=== PATIENT | female | born 1980 | race Caucasian/White ===

== ENCOUNTER 2019-02-16 20:36 | Inpatient (IN) ==
[~2019-02-16] VITALS: Ht 157.5 cm; Wt 61.4 kg
[2019-02-16 21:15] VITALS: BP 117/77
[2019-02-16 22:03] LABS: HEMATOCRIT 31.8 % (36.0-47.0); HEMOGLOBIN 10.9 g/dl (12.0-15.5); MEAN CORPUSCULAR HEMOGLOBIN 30.2 pg (27.0-33.0); MEAN CORPUSCULAR HGB CONC 34.3 g/dl (32.0-36.5); MEAN CORPUSCULAR VOLUME 88.1 fl (80.0-96.0); PLATELET COUNT, AUTOMATED 229 10^3/uL (150-450); RED BLOOD COUNT 3.61 10^6/uL (4.00-5.40); WHITE BLOOD COUNT 8.8 10^3/uL (4.0-10.0)
[2019-02-16 22:16] VITALS: BP 110/67
[2019-02-16] MEDS ORDERED: OXYTOCIN 30 UNITS IN 0.9% NaCl 500ML IV BAG (J2590) As Ordered ONE (22:42)
[2019-02-16 23:35] VITALS: BP 132/81
--- NOTE | 2019-02-16 23:39 | HPE ---
DATE OF ADMISSION: 02/16/2019 HISTORY OF THE PRESENT ILLNESS: Patient is a 38-year-old female who is a 11, para 8-1-0-8 with an estimated due date (DELIA) of 02/04/2019, based off of her last menstrual period (LMP) of 04/29/2018. Patient is 41 weeks and 5 days. She has not had any care. She presents to labor and delivery tonight with complaints of contractions. She reports active movement. She denies leaking of fluid or vaginal bleeding. Patient and are Yaz[place]. HISTORY: Delivery #1: 07/2006 - male fetus, weighing 13 ounces, a still after patient fell down the stairs. Baby #2 born 08/2007 - a female, weighing 6 pounds 6 ounces. Baby #3 born 09/2008 - a male, weighing 7 pounds 5 ounces. Baby #4 born 03/2010 - a male, weighing 5 pounds 7 ounces. Baby #5 born 07/2011 - female, weighing 6 pounds 1 ounce. Baby #6 born 10/2012 - a female, weighing 6 pounds 1 ounce. Baby #7 born 05/2014 - a male, weighing 6 pounds 10 ounces. Baby #8 born 05/2016 - a female, weighing 7 pounds 16 ounces. Baby #9 born 09/2017 - a male, weighing 6 pounds. Patient reports no complications with deliveries during or after. PAST MEDICAL HISTORY: None. SURGICAL HISTORY: None. FAMILY HISTORY: Noncontributory. SOCIAL HISTORY: Patient is . She has no history of alcohol or drug abuse. She denies any sexually transmitted infections. She denies being a smoker. ALLERGIES: No known allergies. MEDICATIONS: Denies taking any medications. OBJECTIVE: heart rate is 135 with moderate variability, positive accelerations and no decelerations. Contractions are regular, every 2-6 minutes. Vital Signs: Blood pressure is 117/77, her heart rate is 70, respirations are 18, temperature is 98.0. Vaginal Exam: Patient is 6 cm, 80% effaced, 0 station. LABS: Unknown GBS. Unknown blood type. Unknown gonorrhea, chlamydia. No labs were done. ASSESSMENT: Intrauterine and 41 weeks and 5 days gestation, active labor, category 1 heart rate tracing, GBS unknown. PLAN: Admit to labor and delivery, out of bed as tolerated, diet is regular, GBS unknown, and patient refusing intravenous (IV) antibiotics. IV and labs per unit protocol. Patient also declines hepatitis B, vitamin K, and erythromycin for baby. All implications of each medication reviewed with parents, and they still decline. Patient and also decline blood products. Extensive education done on reasons for blood products and the need for life saving measures, and patient and still decline. Anticipate cervical change and spontaneous vaginal delivery.
[2019-02-16 23:50] VITALS: BP 137/87
[2019-02-17 00:05] VITALS: BP 134/96
[2019-02-17 00:20] VITALS: BP 127/84
--- NOTE | 2019-02-17 00:31 | DNPDOC ---
[facility] Delivery Note Delivery Note DATE OF DELIVERY: 02/16/19 at 2312 PREDELIVERY DIAGNOSIS: 41-5/7 weeks' gestation and labor. POST DELIVERY DIAGNOSIS: Delivered. PROCEDURE: Spontaneous vaginal delivery. TEMPORARY OFFICE ASSISTANT: Margot Benavidez CNM, MELANIA ANESTHESIA: none. ESTIMATED BLOOD LOSS: 100 mL. FINDINGS: 6 pounds 11 ounces; 3030 grams; female , Score 8/9, no care. DELIVERY SUMMARY: Patient is a 38-year-old female who is now a who presents to L&D in active labor. She progressed to fully dilated at 2309 and pushed to a living female in the JEAN PAUL position to ROT at 2312. The shoulder delivered with ease and the corpus immediately followed. The baby was placed on the maternal abdomen active and crying. The cord was clamped x2 after 2 minutes and cut by the FOB. A 3-vessel cord was noted. The placenta delivered spontaneously and intact at 2320. Uterine hemostasis was achieved via rapid infusion of IV Pitocin and fundal massage. The perineum and vagina were inspected and found to be intact. Patient has large, inflamed varicosities on her right labia. Mom plans to breastfeed her . They have refused Vitamin K and erythromycin. Both mom and baby are in stable condition. MARGOT BENAVIDEZ CNM Feb 17, 2019 00:31
[2019-02-17 00:35] VITALS: BP 107/62
[2019-02-17 00:50] VITALS: BP 108/64
[2019-02-17 02:40] VITALS: BP 101/55
[2019-02-17] MEDS ORDERED: PRENTAB9 PO (05:08)
[2019-02-17 06:00] VITALS: BP 122/63
[2019-02-17] MEDS ORDERED: OXYTOCIN DRIP 30 UNITS in APPROPRIATE DILUENT 1 EA IV SCH (06:56)
[2019-02-17] MEDS ORDERED: DOCUSATE SODIUM 100 MG CAP PO PRN (07:00)
[2019-02-17] MEDS ORDERED: ACETAMINOPHEN 500 MG TAB PO PRN (07:00)
[2019-02-17] MEDS ORDERED: DIBUCAINE 1% OINTMENT 30GM TOP PRN (07:00)
[2019-02-17] MEDS ORDERED: METHYLERGONOVINE MALEATE 0.2 MG TAB PO PRN (07:00)
[2019-02-17] MEDS ORDERED: IBUPROFEN 800 MG TAB PO PRN (07:00)
[2019-02-17] MEDS ORDERED: RHOGAM 300 MCG (1500 IU) INJ (J2790) IM SCH (07:00)
[2019-02-17] MEDS ORDERED: MEASLES,MUMPS,RUBELLA VACCINE INJ (MMR-II) (90707) SC SCH (07:00)
[2019-02-17] MEDS ORDERED: PRENATAL VITAMINS CHEWABLE TABLET PO SCH (09:00)
[2019-02-17 10:42] LABS: RUBELLA IgG QUALITATIVE IMMUNE (IMMUNE)
== END 2019-02-17 18:50 | disposition home or self-care (01) | DRG 807 ==
LOC: M LDO 20:36 → M LDI 21:46 → M OBS 02-17 02:30
PROVIDERS: ADMIT Advanced Practice Midwife; ATTEND Advanced Practice Midwife
PROC: 10E0XZZ Delivery of Products of Conception, External Approach (ICD-10-PCS; principal; 2019-02-16)
DX: O48.0 Post-term pregnancy (principal); Z37.0 Single live birth; O09.523 Supervision of elderly multigravida, third trimester; O09.31 Supervision of pregnancy with insufficient antenatal care, first trimester; O09.32 Supervision of pregnancy with insufficient antenatal care, second trimester; O09.33 Supervision of pregnancy with insufficient antenatal care, third trimester; O22.13 Genital varices in pregnancy, third trimester; Z3A.40 40 weeks gestation of pregnancy